=== PATIENT | male | born 1955 | race Caucasian/White ===

== ENCOUNTER 2016-09-06 08:31 | Emergency (ER) | payer OTHER ==
[2016-09-06 08:38] VITALS: BP 140/87; PULSE 64; RESP 17; TEMP 97.5; O2SAT 98
--- NOTE | 2016-09-06 08:44 | EDPHY ---
H & P Time Seen by Provider: 09/06/16 08:43 HPI/ROS: CHIEF COMPLAINT: Vertigo HISTORY OF PRESENT ILLNESS: Patient is had peripheral vertigo in the past but it is all was resolved in about an hour. Yesterday morning he had some at 5:00 a.m. but 1 away spontaneously. Today at 4:00 a.m. he woke with vertigo and was quite severe with nausea but it is not quite gone and so he presents for evaluation. 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 Patient's symptoms are mild now. They are provoked with turning his head is noted above. They are not associated with headache or neck pain, weakness or numbness in extremities, double vision, or any other neurologic symptoms. No recent trauma or injury. REVIEW OF SYSTEMS: Eye: no change in vision or double vision ENT: no sore throat, no ear symptoms or hearing loss Cardiac: no chest pain or syncope Pulmonary: no cough or SOB Abdomen: no vomiting, diarrhea, abdominal pain Musculoskeletal: no back pain or neck pain Skin: no rash Neuro: no headache Constitutional: no fever : no urinary symptoms A comprehensive 10 point review of systems is otherwise negative aside from elements mentioned in the history of present illness. PAST MEDICAL HISTORY: Peripheral vertigo. Negative for stroke or coronary disease, hypertension or diabetes. Social history: Lives in [place], here for work General Appearance: Alert and conversant, cooperative. Eyes: No scleral icterus. Extraocular motion intact. Slight nystagmus looking to the left. ENT, Mouth: Normal mucous membranes. Normal tympanic membranes. Respiratory: Normal respiratory effort, breath sounds equal, lungs are clear to auscultation. Cardiovascular: Regular rate and rhythm. Gastrointestinal: Abdomen is soft and non tender. Neurological: Alert and oriented x3. Normally conversant. Face symmetric, normal movement and sensation in all extremities. Ambulatory without ataxia, no pronator drift, [id number] normal bilaterally, speech fluent. Skin: Warm and dry, no rashes. Musculoskeletal: No peripheral edema and no joint swelling. Psychiatric: Not agitated. Emergency Department course/MDM: Patient presents with acute onset peripheral vertigo which is improving and does not have red flags to suggest a central cause. I do not think emergent imaging is indicated patient agrees. I think the most reasonable thing is to discharge him with prescription for oral meclizine. Patient is agreeable. Smoking Status: Never smoked Constitutional: Initial Vital Signs Temperature (C) 36.4 C 09/06/16 08:34 Heart Rate 64 09/06/16 08:34 Respiratory Rate 17 09/06/16 08:34 Blood Pressure 140/87 H 09/06/16 08:34 O2 Sat (%) 98 09/06/16 08:34 O2 Delivery Mode Room Air Allergies/Adverse Reactions: No Known Allergies Allergy (Unverified 09/06/16 08:33) Home Medications: Medication Instructions Recorded Meclizine HCl [Meclizine HCl 25 mg 25 mg PO Q6 PRN #15 tab 09/06/16 (RX,OTC)] Medical Decision Making - Diagnostics EKG Interpretation: 12-lead EKG interpreted by me; official reading is in trace master. My interpretation is sinus rhythm with nonspecific intraventricular conduction delay otherwise normal, rate 64. Differential Diagnosis: Differential diagnosis considered for dizziness including but not limited to peripheral and central causes of vertigo, orthostatic causes including dehydration, vertebral dissection or cerebellar stroke, and blood loss. Departure - Departure Disposition: Home, Routine, Self-Care Clinical Impression: Vertigo Condition: Good Instructions: Benign Paroxysmal Positional Vertigo (ED) Additional Instructions: Please follow-up with Neurology if you're not getting better. Return immediately for severe symptoms or any new symptoms. Referrals: Casey Johnston DO [Doctor of Osteopathy] - As per Instructions Prescriptions: Meclizine HCl [Meclizine HCl 25 mg (RX,OTC)] 25 mg PO Q6 PRN #15 tab PRN Reason: Dizziness
--- NOTE | 2016-09-06 08:45 | CPEKG ---
Heart Rate: 64 RR Interval: 938 P-R Interval: 156 QRSD Interval: 120 QT Interval: 428 QTC Interval: 442 P Ewell: 44 QRS Ewell: 59 T Wave Ewell: 35 EKG Severity - ABNORMAL ECG - EKG Impression: SINUS RHYTHM EKG Impression: NONSPECIFIC INTRAVENTRICULAR CONDUCTION DELAY Electronically Signed By: Jose Vera 06-Sep-2016 12:18:29
== END 2016-09-06 09:04 | disposition home or self-care (01) ==
DX: R42 Dizziness and giddiness (principal)